=== PATIENT | female | born 1955 | race Caucasian/White ===

== ENCOUNTER → 2022-07-09 | Day surgery (SDC) | payer OTHER ==
--- NOTE | 2022-07-09 12:24 | RAD REPORT ---
EXAM DESCRIPTION: US - Breast Core BX w/US Guidance - 07/09/2022 10:30 am CLINICAL HISTORY: ICD R 92.8 COMPARISON: April 05, 2021 ultrasound TECHNIQUE: The risks, benefits alternatives to the procedure were explained to the patient and infor med consent obtained. Skin and subcutaneous tissues anesthetized with lidocaine. Under sonographic guidance, 5 x 14 gauge vacuum assisted core biopsies of the mass within the right b reast obtained. 2 centimeter specimens taken. Tissue given to pathology. Subsequently a localizing clip was placed into the mass. Patient experienced no immediate complication IMPRESSION: Vacuum assisted core biopsies of the right breast mass.
== END ==
LOC: RAD 09:30
PROVIDERS: ATTEND Nurse Practitioner Family
DX: C50.911 Malignant neoplasm of unspecified site of right female breast (principal); Z17.0 Estrogen receptor positive status [ER+]
CPT/HCPCS: 19083; 88305